=== PATIENT | female | born 1990 | race Caucasian/White ===

== ENCOUNTER 2019-05-12 16:30 | Outpatient (CLI) | payer MEDICAID ==
[~2019-05-12] VITALS: Ht 160 cm; Wt 70.4 kg
[~2019-05-12 16:30] MED LIST: FER325 PO; HYDR-3601 PO; PREN-99 PO
[2019-05-12 16:37] VITALS: Ht 160 cm; Wt 70.4 kg
[2019-05-12 16:38] VITALS: BP 115/64; PULSE 84; RESP 18
[2019-05-12] MEDS: LACTATED RINGER'S 1,000 ML IV SCH ×2 (19:03→21:30)
--- NOTE | 2019-05-13 00:47 | PN ---
Triage Information Date/Time 05/13/19 Reason for visit: DFM Weeks of Gestation 37w5d /Para Diabetes: none Hypertention: none Additional information x2 C/S 2cm at the office Objective Vital Signs Date Temp Pulse Resp B/P (MAP) Pulse Ox O2 O2 Flow FiO2 Time Delivery Rate 05/12/19 99.0 84 18 115/64 Room Air 16:38 (81) Heart Rate: 150's Heart Rate Comments CAT I Contractions: >10 Minutes Apart Exam VE 2/75%/-1 Results/Medications Medications IV hydration Imaging Results BPP 8 JERRY 9.5 Disposition: Discharge Assessment/Plan A IUP 37w5d with x2 Previous C/S NIL P discharge home with routine labor instructions GUS MCGARRY MD May 13, 2019 00:47
--- NOTE | 2019-05-13 01:31 | TRIAGE ---
OB Triage Datetime Report Generated by CPN: 05/13/2019 01:31 Datetime: 05/12/2019 22:02 Stage of : OB Triage Assessment Type: Triage Labor Evaluation Frequency: 2-6.5 Monitor Mode: External Duration (sec)2399: 40-100 Quality: Mild Pattern: Normal: <= 5 Contractions in 10 Minutes Resting Tone [place]: Relaxed Heart Rate FHR Baseline Rate: 130 Monitor Mode: External US FHR Baseline Changes: No Baseline Change Variability: Moderate 6-25 bpm Accelerations: 15X15 Decelerations: None Category: Category I Datetime: 05/12/2019 21:59 Monitor Mode: Palpation Resting Tone [place]: Relaxed Datetime: 05/12/2019 21:00 Stage of : OB Triage Labor Evaluation Frequency: 1.5-5.5 Monitor Mode: External Duration (sec)2399: 40-90 Quality: Mild Pattern: Normal: <= 5 Contractions in 10 Minutes Resting Tone [place]: Relaxed Heart Rate FHR Baseline Rate: 130 Monitor Mode: External US Variability: Moderate 6-25 bpm Accelerations: 15X15 Decelerations: None Category: Category I Datetime: 05/12/2019 20:28 Vaginal Exam Dilatation (cms): 2.0 Effacement (%): 70 Station: -1 Exam By: COURTNEY Middleton Vaginal Bleeding: None Cervix, Consistency: Moderate Cervix, Position: Midposition Presentation 'A': Cephalic Datetime: 05/12/2019 20:23 Monitor Mode: Palpation Resting Tone [place]: Relaxed Datetime: 05/12/2019 20:21 Stage of : OB Triage Assessment Type: Triage Maternal Assessment Level of Consciousness: Keenly Alert, Responsive DTR's/Clonus: DTRs 2+; No Clonus Headache: Denies Blurred Vision: No Respiratory Effort: Unlabored; Regular Rhythm; Equal Expansion Breath Sounds, Left: Clear and Equal Breath Sounds, Right: Clear and Equal Nausea/Vomiting: Denies RUQ Epigastric Pain: Denies Lower Extremities Edema: None Degree: None Upper Extremities Edema: None Degree: None Facial Edema: None Temperature Route: Oral Fall Risk Assessment History of Falling: (0) No Secondary Diagnosis: (0) No Ambulatory Aid: (0) Bedrest/Nurse Assist IV Therapy: (0) No Gait: (0) Normal/Bedrest/Immobile Mental Status: (0) Oriented to Own Ability Fall Score: 0 Fall Risk Score Definition: No Risk: No action required Pain Assessment Pain Scale: 4 Pain Presence: Intermittent Pain Type: Cramping Pain Location: Abdomen Pain Relief Measures: Comfort Measures Datetime: 05/12/2019 20:19 Stage of : OB Triage Datetime: 05/12/2019 18:45 Labor Evaluation Frequency: irregular Monitor Mode: External Duration (sec)2399: 40-60 Quality: Mild Resting Tone [place]: Relaxed Heart Rate FHR Baseline Rate: 130 Monitor Mode: External US FHR Baseline Changes: No Baseline Change Variability: Moderate 6-25 bpm Accelerations: 15X15 Decelerations: None Category: Category I Datetime: 05/12/2019 17:45 Labor Evaluation Frequency: x6 Monitor Mode: External Duration (sec)2399: 40-70 Quality: Mild Resting Tone [place]: Relaxed Contraction Comments: uterine irritability noted Heart Rate FHR Baseline Rate: 130 Monitor Mode: External US FHR Baseline Changes: No Baseline Change Variability: Moderate 6-25 bpm Accelerations: 15X15 Decelerations: None Category: Category I Datetime: 05/12/2019 16:44 Stage of : OB Triage Assessment Type: Triage Maternal Assessment Level of Consciousness: Keenly Alert, Responsive DTR's/Clonus: DTRs 2+; No Clonus Headache: Denies Blurred Vision: No Respiratory Effort: Unlabored; Regular Rhythm; Equal Expansion Breath Sounds, Left: Clear and Equal Breath Sounds, Right: Clear and Equal Nausea/Vomiting: Denies RUQ Epigastric Pain: Denies Lower Extremities Edema: None Degree: None Upper Extremities Edema: None Degree: None Facial Edema: None Temperature Route: Oral Fall Risk Assessment History of Falling: (0) No Secondary Diagnosis: (0) No Ambulatory Aid: (0) Bedrest/Nurse Assist IV Therapy: (0) No Gait: (0) Normal/Bedrest/Immobile Mental Status: (0) Oriented to Own Ability Fall Score: 0 Fall Risk Score Definition: No Risk: No action required Labor Evaluation Frequency: x1 Monitor Mode: External Duration (sec)2399: 50 Quality: Mild Pattern: Normal: <= 5 Contractions in 10 Minutes Resting Tone [place]: Relaxed Contraction Comments: uterine irritability noted Heart Rate FHR Baseline Rate: 140 Monitor Mode: External US FHR Baseline Changes: No Baseline Change Variability: Moderate 6-25 bpm Accelerations: 15X15 Decelerations: None Category: Category I Pain Assessment Pain Scale: 4 Pain Presence: Intermittent Pain Type: Cramping Pain Location: Abdomen Pain Relief Measures: Comfort Measures Datetime: 05/12/2019 16:42 Time of Arrival: 05/12/2019 16:15 EGA: 37.6 Arrived By: Ambulatory Arrived From: Dr. Ronquillo Chief Complaint: VE 1 dilated in the office Movement: Present Contractions: Irregular Contractions: [id number] Rupture of Membranes: Denies Vaginal Bleeding: None Vaginal Discharge: Denies Recent Sexual Intercouse: Denies Abdominal Trauma: Not Applicable Patient Complaints: Cramping Time Provider Notified: 05/12/2019 17:43 Provider Notified: Dr Camejo Initial Plan: NST
== END 2019-05-12 22:22 | disposition home or self-care (01) ==
LOC: OBT 16:30 → L-D 16:30 → OBT 22:22
PROVIDERS: ATTEND Obstetrics & Gynecology
DX: O36.8130 Decreased fetal movements, third trimester, not applicable or unspecified (principal); Z3A.37 37 weeks gestation of pregnancy
CPT/HCPCS: 36415; 76818; 96360; 96361; J7120; Z7500; G0463

== ENCOUNTER 2019-05-19 12:32 | Outpatient (CLI) | payer MEDICAID ==
[~2019-05-19] VITALS: Ht 160 cm; Wt 70.4 kg
[2019-05-19 12:58] VITALS: Ht 160 cm; Wt 70.4 kg
[2019-05-19 12:59] VITALS: BP 101/60; PULSE 78; RESP 19
--- NOTE | 2019-05-19 15:12 | TRIAGE ---
OB Triage Datetime Report Generated by CPN: 05/19/2019 15:11 Datetime: 05/19/2019 14:00 Labor Evaluation Frequency: 0 Pattern: Normal: <= 5 Contractions in 10 Minutes Resting Tone [place]: Relaxed Heart Rate FHR Baseline Rate: 135 Monitor Mode: External US FHR Baseline Changes: No Baseline Change Variability: Moderate 6-25 bpm Accelerations: 15X15 Decelerations: None Category: Category I Datetime: 05/19/2019 13:30 Labor Evaluation Frequency: OCCAS Monitor Mode: External Duration (sec)2399: 50-80 Quality: Mild Pattern: Normal: <= 5 Contractions in 10 Minutes Resting Tone [place]: Relaxed Heart Rate FHR Baseline Rate: 145 Monitor Mode: External US FHR Baseline Changes: No Baseline Change Variability: Moderate 6-25 bpm Accelerations: 15X15 Decelerations: None Category: Category I Datetime: 05/19/2019 13:04 Assessment Type: Triage Maternal Assessment Level of Consciousness: Keenly Alert, Responsive DTR's/Clonus: DTRs 2+; No Clonus Headache: Denies Blurred Vision: No Respiratory Effort: Unlabored; Regular Rhythm; Equal Expansion Breath Sounds, Left: Clear and Equal Breath Sounds, Right: Clear and Equal Nausea/Vomiting: Denies RUQ Epigastric Pain: Denies Lower Extremities Edema: None Degree: None Upper Extremities Edema: None Degree: None Facial Edema: None Fall Risk Assessment History of Falling: (0) No Secondary Diagnosis: (0) No Ambulatory Aid: (0) Bedrest/Nurse Assist IV Therapy: (0) No Gait: (0) Normal/Bedrest/Immobile Mental Status: (0) Oriented to Own Ability Fall Score: 0 Fall Risk Score Definition: No Risk: No action required Datetime: 05/19/2019 13:02 Time of Arrival: 05/19/2019 12:26 EGA: 38.6 Arrived By: Ambulatory Arrived From: Home Chief Complaint: DFM Movement: Decreased Contractions: Denies/Absent Rupture of Membranes: Denies Vaginal Bleeding: None Vaginal Discharge: Denies Recent Sexual Intercouse: Denies Abdominal Trauma: Not Applicable Patient Complaints: Other Time Provider Notified: 05/19/2019 14:27 Provider Notified: DR. ARMENDARIZ Initial Plan: NST BPP Datetime: 05/12/2019 22:01 Stage of : OB Triage Datetime: 05/12/2019 21:59 Stage of : OB Triage Datetime: 05/12/2019 20:21 Fall Score: 0 Fall Risk Score Definition: No Risk: No action required Datetime: 05/12/2019 19:20 Stage of : OB Triage Datetime: 05/12/2019 16:44 Fall Score: 0 Fall Risk Score Definition: No Risk: No action required Datetime: 05/12/2019 16:42 EGA: 37.6
--- NOTE | 2019-05-19 15:31 | PN ---
Triage Information Date/Time May 19, 2019 Reason for visit: DFM Weeks of Gestation 38 weeks and 6 days /Para Diabetes: none Additional information 28 years old with IUP at 38 weeks and 6 days presented with complaint of Decreased movement. Denies any LOF,. vaginal bleeding or contractions. Denies any other complaint Objective Vital Signs Date Temp Pulse Resp B/P (MAP) Pulse Ox O2 O2 Flow FiO2 Time Delivery Rate 05/19/19 98.2 78 19 101/60 Room Air 12:59 (74) Heart Rate: 130's Heart Rate Comments Cat 1 Contractions: None Exam GA;' A&O, NAD abdomen: Soft, gravid. Fundal Height consistent with date NST. Cat 1 BPP: 05/26 JERRY: 10.1 Results/Medications Imaging Results PROCEDURE: OB ultrasound for biophysical profile CLINICAL INDICATION: Decreased movement. TECHNIQUE: Multiple sonographic images of the pelvis were obtained. Transabdominal view of the gravid uterus are available for review. The images were reviewed on a PACS workstation. COMPARISON: US PELVIS 05/12/2019 FINDINGS: breathing movement = 2/2 tone = 2/2 motion = 2/2 Quantitative amniotic fluid volume = 2/2 JERRY = 10.1 cm Single live intrauterine with cardiac activity at 142 beats per minute. There is a fundal placenta without previa or abruption. IMPRESSION: 1. Single living intrauterine gestation in cephalic position. 2. Biophysical profile = 05/26. 3. JERRY = 10.1 cm. RPTAT: [facility] Disposition: Discharge Assessment/Plan IUP at 38 weeks and 6 days Decreased movement testing reassuring DC home no evidence of labor or PPROM Strict labor precaution and kick counts and follow up with OB office in 3 days discussed with the patient Patient verbalized understanding EDGARDO ARMENDARIZ MD May 19, 2019 15:31
== END 2019-05-19 14:40 | disposition home or self-care (01) ==
LOC: L-D 12:32 → OBT 12:32
PROVIDERS: ATTEND Obstetrics & Gynecology
DX: O36.8130 Decreased fetal movements, third trimester, not applicable or unspecified (principal); Z3A.38 38 weeks gestation of pregnancy
CPT/HCPCS: 76818; Z7500; G0463

== ENCOUNTER 2019-05-21 07:06 | Inpatient (IN) | payer MEDICAID ==
[~2019-05-21] VITALS: Ht 157.5 cm; Wt 70.0 kg
[2019-05-21 07:36] VITALS: Ht 157.5 cm; Wt 70.0 kg
[2019-05-21] MEDS ORDERED: CARBOPROST 250 MCG INJ IM PRN ×3 (08:00→18:30)
[2019-05-21] MEDS ORDERED: CEFAZOLIN 2 GM/50 ML (PMX) 50 ML IVPB SCH (08:00)
[2019-05-21] MEDS ORDERED: OXYTOCIN 30 UNITS/LR 500 ML IV PRN ×3 (08:00→18:30)
[2019-05-21] MEDS ORDERED: MISOPROSTOL 200 MCG TAB PR PRN ×3 (08:00→18:30)
[2019-05-21] MEDS ORDERED: AZITHROMYCIN 500 MG in SOD CHLORIDE 0.9% 250 ML IVPB SCH (08:00)
[2019-05-21] MEDS ORDERED: METHYLERGONOVINE 0.2 MG INJ IM PRN ×3 (08:00→18:30)
--- NOTE | 2019-05-21 08:35 | PREAC ---
Date/Time of Note Date/Time of Note DATE: 05/21/19 TIME: 08:34 Anesthesia Eval and Record Evaluation Time Pre-Procedure Interview DATE: 05/21/19 TIME: 08:34 Age 28 Sex female NPO: 8 hrs Preoperative diagnosis iup at 39 weeks Planned procedure repeat c section Past Medical History Past Medical History: None Surgery & Anesthesia Issues No known issue Meds Anticoagulation: No Beta Yemi within 24 hr: No Reason Beta Yemi not given: Pt. not on B-Yemi Reported Medications Ferrous Sulfate* (Ferrous Sulfate*) 325 Mg Tabec, 325 MG PO DAILY, TAB 05/12/19 Vit #76/Iron,Carb/FA (Pnv 29-1 Tablet) 1 Each Tablet, 1 EACH PO DAILY, TAB 05/12/19 Current Medications Cefazolin Sodium/ Dextrose 50 ml @ 100 mls/hr ONCE IVPB ; Start 05/21/19 at 08:00 Oxytocin/Lactated Ringer's 500 ml @ 0 mls/hr ONCE PRN IV .VAGINAL BLEEDING; Start 05/21/19 at 08:00 Methylergonovine Maleate (Methergine) 0.2 mg ONCE PRN IM .VAGINAL BLEEDING; Start 05/21/19 at 08:00 Carboprost Tromethamine (Hemabate) 250 mcg ONCE PRN IM .VAGINAL BLEEDING; Start 05/21/19 at 08:00 Misoprostol (Cytotec) 1,000 mcg ONCE PRN [place] .VAGINAL BLEEDING; Start 05/21/19 at 08:00 Azithromycin 500 mg/Sodium Chloride 250 ml @ 250 mls/hr NOW IVPB ; Start 05/21/19 at 08:00; Stop 05/21/19 at 13:00 Meds reviewed: Yes Allergies Coded Allergies: No Known Drug Allergies (Verified Allergy, Unknown, 05/12/19) Allergies Reviewed: Yes Labs/Studies Labs Reviewed: Reviewed by anesthesiologist test: Positive Pre-procedure Exam Airway: Adequate mouth opening, Adequate thyromental dist Mallampati: Mallampati II Teeth: Normal Lung: Normal Heart: Normal ASA Physical Status ASA physical status: 2 Emergency: None Planned Anesthetic Neuraxial: Spinal Planned Pain Management Sub-arachniod narcotics, Parenteral pain med Pre-operative Attestations Prior to commencing anesthesia and surgery, the patient was re-evaluated, there was verification of: *The patient's identity *The results of appropriate recent lab work and preoperative vital signs *The above evaluation not changing prior to induction *Anesthetic plan, risk benefits, alternative and complications discussed with patient/family; questions answered; patient/family understands, accepts and wishes to proceed. NELLY GUO May 21, 2019 08:35
[2019-05-21] MEDS ORDERED: morphine SULFATE/PF (10 MG/10 ML) INJ ONE (09:17)
[2019-05-21] MEDS ORDERED: DEXAMETHASONE 4 MG/ML 1 ML INJ ONE (09:17)
[2019-05-21] MEDS ORDERED: ONDANSETRON 4 MG INJ ONE (09:17)
[2019-05-21] MEDS ORDERED: OXYTOCIN 30 UNITS/LR 500 ML IV ONE ×2 (09:17→10:55)
[2019-05-21] MEDS ORDERED: PHENYLephrine (100 MCG/ML) 10ML SYG ONE (09:18)
[2019-05-21] MEDS: LACTATED RINGER'S 1,000 ML IV SCH ×3 (09:20→14:24)
--- NOTE | 2019-05-21 09:55 | HP ---
Date/Time of Note Date/Time of Note DATE: 05/21/19 TIME: 09:54 OB - History Hx of Present Free Text/Dictation 28 years old -0-0-2 with single intrauterine at 39 weeks and 1 day with 2 previous delivery desiring permanent surgical sterilization. She states good movement. She denies nausea, vomiting, shortness of breath, chest pain, headache, visual changes, vaginal bleeding or LOF. Chief Complaint: Scheduled for repeat delivery and bilateral tubal ligation Estimated Due Date: May 27, 2019 : 3 Para: 2 Spontaneous : 0 Therapeutic : 0 Care: Good Care Ultrasounds: Normal mid trimester US Obstetrical Complications: None Medical Complications: None Past Family/Social History * Past Medical, Surgical, Family and Obstetric Histories reviewed from chart. Rubella: immune GBS Status: Negative HBsAG: Negative OB Admission Exam Vital Signs Vital Signs Blood pressure 116/68, pulse rate 72/minutes, respiratory rate 16/minutes, temperature 98.1. Physical Exam HEENT: WNL Heart: Rhythm Normal Lungs: Clear Abdomen: WNL Extremities: Normal Reflexes: Normal Membranes: Intact Heart Rate: 140's Accelerations: Accelerations Present Decelerations: No Decelerations Varibility: Moderate Contractions on Admission: >10 Minutes Apart Last 72 hours Lab Results CBC & BMP 05/21/19 07:50 OB Assessment/Plan Other plan: 28 years old -0-0-2 with single intrauterine at 39 weeks and 1 day with 2 previous delivery desires repeat delivery and permanent surgical sterilization -FHR: Category I -Continuous EFM, toco -CBC, blood type and screen -Please see the orders -A+/Rubella: Immune -GBS: Negative 2. She is desiring permanent surgical sterilization. BTL, other contraceptive options including IUD with risk-benefit discussed in detail with patient. The risk of delivery including but not limited to bleeding, infection, injury to other organs (bowel, bladder, ureter, vessels, nerves), injury to fetus, blood transfusion, blood transfusion related infection, risk of anesthesia, adhesion, needs for future , removal of uterus or any other indicated surgery, permanent surgical sterilization. Increased risk of ectopic if failure of procedure occurs was discussed with the patient and her family. She expressed understanding. All of her questions were answered. She signed the informed consent. PHYSICIAN'S VERIFICATION OF INFORMED CONSENT The patient was counseled regarding the procedure, its indications, risks, potential complications and alternatives and any questions were answered. Consent was obtained. PLANNED PROCEDURE/TREATMENT: delivery with possible using vacuum/forceps, bilateral tubal ligation and any other indicated surgery PHYSICIAN'S VERIFICATION OF INFORMED CONSENT FOR BLOOD TRANSFUSION: There is a reasonable possibility that blood transfusion will be necessary as a result of the patient's procedure. I have discussed the following with the patient/patient's legal healthcare representative: An explanation of the benefits and risks of the transfusion of blood or blood products and the possible alternatives. All questions have been answered to the patient's satisfaction. INFORMED CONSENT:The patient has been informed of: The nature of the proposed care, treatment, services, medications, interventions or procedures. Potential benefits, risks or side effects, including potential problems related to recuperation. The likelihood of achieving care treatment and service goals. Reasonable alternatives to the proposed care, treatment and service. The relevant risks, benefits and side effects related to alternatives, including the possible results of not receiving care, treatment and services. When indicated, any limitations on the confidentiality of information learned from or about the patient. If appropriate, the risks, benefits and alternatives of the drugs to be used for sedation/analgesia including moderate sedation. If appropriate, patient has been provided information on the risks, benefits and alternatives to the transfusion of blood and/or blood products. If appropriate, patient has been provided information regarding the [employer]ron [employer] Blood Act. GIOVANNA PHAM May 21, 2019 09:54
--- NOTE | 2019-05-21 11:21 | OPR ---
Operative Report Planned Procedure Procedure date May 21, 2019 Procedure(s) 1. Repeat low transverse delivery 2. Bilateral sural salpingectomy Performed by see signature line Orchard Pruner: ENEDELIA GORDON MD Anesthesiologist: NELLY GUO Pre-procedure diagnosis 28 years old -0-0-2 with single intrauterine at 39 weeks and 1 day with 2 previous delivery desiring repeat delivery and permanent surgical sterilization. [id number] Anesthesia Type: [id number] spinal Post-Procedure Post-procedure diagnosis 28 years old -0-0-2 with single intrauterine at 39 weeks and 1 day with 2 previous delivery desiring repeat delivery and permanent surgical sterilization. Findings 1. Normal uterus, fallopian tubes and ovaries 2. Viable female in cephalic presentation. 9 at one minute and 9 in 5 minutes. Weight: 7 pounds 14 ounces / 3560 g. Time of delivery: 10:09 3. Placenta with three vessel cord 4. Amniotic fluid - Clear Estimated Blood Loss: 500 - 600 mls Specimen(s) none Grafts/Implant(s) none Complication(s) none Pt Condition post procedure: stable Disposition: PACU Procedure Description INDICATION AND HISTORY: A 28 years old -0-0-2 with single intrauterine at 39 weeks and 1 day with 2 previous delivery desiring repeat delivery and permanent surgical sterilization. The risk of delivery including but not limited to bleeding, infection, injury to other organs (bowel, bladder, ureter, vessels, nerves), injury to fetus, blood transfusion, blood transfusion related infection, risk of anesthesia, adhesion, needs for future , removal of uterus or any other indicated surgery was discussed with the patient and her family. She expressed understanding. All of her questions were answered. She signed the informed consent. DESCRIPTION OF OPERATION: The patient was taken to the operating room, where she was identified and the procedure was verified. The patient received two gram of Ancef 30 minutes prior to surgery. Spinal anesthesia was placed by anesthesiologist. The patient placed in the dorsal supine position with a left tilt. The heart rate was 130 bpm. The patient was then prepped and draped in the normal sterile fashion. A Pfannenstiel skin incision was made and carried down to the fascia with knife. The fascia was incised in the midline and the fascial incision was carried laterally with Leal scissors. The superior portion of the fascial incision was then grasped with Izabella clamps and tented up and dissected off the underlying rectus muscle with sharp dissection. The lower portion of the fa scial incision was then made in a similar fashion. The rectus muscle was and the peritoneum was entered. The peritoneal incision was then stretched and a bladder blade was inserted. Then, an incision was made in the lower uterine segment in a transverse fashion with a knife and extended bluntly. The was delivered atraumatically in cephalic presentation with the above findings. The umbilical cord was clamped and cut. The neonatology resuscitation team was present and the baby was handed to them. A cord blood sample was obtained for further evaluation. The placenta and membrane, which appeared normal were Removed. The uterus was exteriorized and cleared of all clot and debris. The uterus was then closed in a two layer fashion with 0- Monocryl. At the time of closure, hemostasis was noted. The gutters were irrigated. The peritoneum was reapproximated with 3-0 Vicryl. The muscle was reapproximated with 3-0 Vicryl. The fascia was approximated with 0-Vicryl in a running fashion. The subcutaneous tissue was re approximated with 3-0 vicryl. The skin was closed with 4-0 Monocryl. All instruments, sponges and needle counts were correct x3. The patient tolerated the procedure well. She transferred to the recovery room in stable condition. GIOVANNA PHAM May 21, 2019 11:21
[2019-05-21] MEDS ORDERED: DIPHENHYDRAMINE 50 MG INJ IV PRN (11:30)
[2019-05-21] MEDS ORDERED: NALOXONE (0.4 MG/ML) INJ IV PRN (11:30)
[2019-05-21] MEDS ORDERED: ONDANSETRON 4 MG INJ IV PRN (11:30)
[2019-05-21] MEDS ORDERED: ZOLPIDEM 5 MG TAB PO PRN (11:30)
[2019-05-21] MEDS ORDERED: HYDROmorphONE 0.5 MG/0.5 ML SYG IV PRN ×2 (11:30)
[2019-05-21] MEDS: KETOROLAC 30 MG INJ IV PRN (12:29)
[2019-05-21 16:25] VITALS: BP 107/55; PULSE 65; RESP 16
[2019-05-21 17:25] VITALS: BP 99/53; PULSE 65; RESP 16
[2019-05-21] MEDS: DEXTROSE 5%-LR 1,000 ML IV SCH (18:11)
[2019-05-21] MEDS ORDERED: OXYTOCIN 30 UNITS/LR 500 ML IV SCH (18:11)
[2019-05-21 18:25] VITALS: BP 106/50; PULSE 66; RESP 16
[2019-05-21] MEDS ORDERED: MAGNESIUM HYDROXIDE 30ML CUP PO PRN (18:30)
[2019-05-21] MEDS ORDERED: METHYLERGONOVINE 0.2 MG TAB PO PRN (18:30)
[2019-05-21] MEDS ORDERED: LANOLIN HPA 1 PKT TOP PRN (18:30)
[2019-05-21 20:00] VITALS: BP 98/50; PULSE 60; RESP 16
[2019-05-21] MEDS: SENNA/DOCUSATE NA (8.6MG/50MG) TAB PO SCH (21:29)
--- NOTE | 2019-05-21 22:09 | PAC ---
Date/Time of Note Date/Time of Note DATE: 05/21/19 TIME: 22:09 Post-Anesthesia Notes Post-Anesthesia Note Last documented vital signs Vital Signs Date Temp Pulse Resp B/P (MAP) Pulse Ox O2 O2 Flow FiO2 Time Delivery Rate 05/21/19 98.5 66 16 106/50 96 Room Air 2100 (68) Activity: WNL Respiratory function: WNL Cardiovascular function: WNL Mental status: Baseline Pain reasonably controlled: Yes Hydration appropriate: Yes Nausea/Vomiting absent: Yes NELLY GUO May 21, 2019 22:09
[2019-05-22 00:27] VITALS: BP 97/45; PULSE 64; RESP 18
[2019-05-22] MEDS: KETOROLAC 30 MG INJ IV PRN ×2 (02:43→08:33)
[2019-05-22 04:00] VITALS: BP 101/53; PULSE 74; RESP 18
[2019-05-22] MEDS: DEXTROSE 5%-LR 1,000 ML IV SCH ×3 (05:27→18:11)
[2019-05-22 08:15] VITALS: BP 104/51; PULSE 69; RESP 16
[2019-05-22] MEDS: SENNA/DOCUSATE NA (8.6MG/50MG) TAB PO SCH ×2 (08:33→22:43)
[2019-05-22] MEDS ORDERED: HYDROCODONE/APAP (5/325) TAB PO PRN ×2 (09:00→11:00)
[2019-05-22] MEDS ORDERED: HYDROCODONE/APAP (5/325) TAB NGT PRN (11:00)
[2019-05-22] MEDS ORDERED: DIPHTH/TET/ACEL PERTUSS (ADULT) 0.5 ML VIAL IM* ONE (11:00)
--- NOTE | 2019-05-22 11:28 | QN ---
Documentation Comment Postop day #1 Status post repeat and BTL Patient stable and afebrile Positive flatus and voiding and tolerating regular diet and ambulating Vital signs stable VS - Last 72 Hours, by Label Date Temp Pulse Resp B/P (MAP) Pulse Ox O2 O2 Flow FiO2 Time Delivery Rate 05/22/19 97.9 69 16 104/51 Room Air 08:15 (68) 05/22/19 98.1 74 18 101/53 97 Room Air 04:00 (69) 05/22/19 98.3 64 18 97/45 (62) 98 Room Air 00:27 05/21/19 98.3 60 16 98/50 (66) 97 Room Air 20:00 05/21/19 98.5 66 16 106/50 96 Room Air 18:25 (68) 05/21/19 98.1 65 16 99/53 (68) 96 Room Air 17:25 05/21/19 98.1 65 16 107/55 96 Room Air 16:25 (72) Hematology - 72 Hrs Test 05/21/19 07:50 05/22/19 07:06 Hematocrit 36.0 % (37.0-47.0) L 28.4 % (37.0-47.0) #L Hemoglobin 12.1 g/dl (12.0-16.0) 9.7 g/dl (12.0-16.0) L Mean Corpuscular 30.5 pg (29.0-33.0) 30.4 pg (29.0-33.0) Hemoglobin Mean Corpuscular 33.6 g/dl (32.0-37.0) 34.2 g/dl (32.0-37.0) Hemoglobin Concent Mean Corpuscular Volume 90.7 fl (82.0-101.0) 89.0 fl (82.0-101.0) Mean Platelet Volume 11.5 fl (7.4-10.4) H 11.0 fl (7.4-10.4) H Platelet Count 197 10^3/UL (140-415) 170 10^3/UL (140-415) Red Blood Count 3.97 10^6/ul (4.20-5.40) 3.19 10^6/ul (4.20-5.40) L L Red Cell Distribution 13.2 % (11.5-14.5) 12.9 % (11.5-14.5) Width White Blood Count 11.5 10^3/ul (4.8-10.8) 13.3 10^3/ul (4.8-10.8) H H Abdomen soft, fundus firm Incision clean,dry,intact Extremities nontender Assessment and plan Patient stable and doing well Encouraged to ambulate Continue with routine postop care ENEDELIA GORDON MD May 22, 2019 11:28
[2019-05-22] MEDS: IBUPROFEN 800 MG TAB PO SCH ×2 (13:36→22:44)
[2019-05-22] MEDS ORDERED: HYDROCODONE/APAP (5/325) TAB GTB SCH (14:00)
[2019-05-22] MEDS ORDERED: HYDROCODONE/APAP (5/325) TAB PO SCH (14:00)
[2019-05-22 16:25] VITALS: BP 101/55; PULSE 72; RESP 16
[2019-05-22 16:36] VITALS: RESP 18
[2019-05-22] MEDS: HYDROCODONE/APAP (5/325) TAB PO PRN (16:36)
[2019-05-22 20:00] VITALS: BP 104/57; PULSE 70; RESP 20
[2019-05-23 04:00] VITALS: BP 110/60; PULSE 66; RESP 18
[2019-05-23] MEDS: IBUPROFEN 800 MG TAB PO SCH ×3 (06:56→21:20)
[2019-05-23 08:00] VITALS: BP 105/55; PULSE 74; RESP 18
[2019-05-23] MEDS: SENNA/DOCUSATE NA (8.6MG/50MG) TAB PO SCH ×2 (08:58→21:20)
--- NOTE | 2019-05-23 14:45 | OPPN ---
Date/Time of Note Date/Time of Note DATE: 05/23/19 TIME: 14:44 Anesthesia Follow up Anesthesia Follow up Last documented vital signs Vital Signs Date Temp Pulse Resp B/P (MAP) Pulse Ox O2 O2 Flow FiO2 Time Delivery Rate 05/23/19 98.1 74 18 105/55 08:00 (72) 05/23/19 Room Air 04:00 05/22/19 97 04:00 Respiratory function: WNL Cardiovascular function: WNL Comments satisfatory pain management with duramorph NELLY GUO May 23, 2019 14:45
[2019-05-23 16:00] VITALS: BP 101/53; PULSE 67; RESP 16
[2019-05-23] MEDS ORDERED: HYDROCODONE/APAP (5/325) TAB PO PRN (17:00)
--- NOTE | 2019-05-23 17:25 | DS ---
Date/Time of Note Date/Time of Note DATE: 05/23/19 TIME: 17:24 Obstetrical Discharge Record Final Diagnosis Final Diagnosis: Term delivered Other Final Diagnosis date of admission 05/21/19 1. 28-year-old G3, P3 at 39 weeks and 1 day for repeat section. She had a history of 2 prior sections. Underwent a section and bilateral tubal ligation. Her hospital course was uncomplicated. Prior to discharge she was ambulating, passing flatus, tolerating a regular diet and her pain was well controlled. She was breast-feeding without difficulty. Her lungs were clear to auscultation bilaterally. Her heart had a regular rate and rhythm. Her fundus was below the level of the umbilicus. Her incision was clean dry and intact. Her extremities were nontender to palpation. 2. Anemia acute blood lossher H/H was 9.8/28.9. Her vitals were stable within normal limits. Her blood pressure was 101/53. Her heart rate was 69. 3. History of depression-social service consult pending discharge. patient to follow up in 1 week for an incision check. Vital Signs Date Temp Pulse Resp B/P (MAP) Pulse Ox O2 O2 Flow FiO2 Time Delivery Rate 05/23/19 98.2 67 16 101/53 16:00 (69) Laboratory Tests Test 05/22/19 07:06 05/23/19 14:37 Hematocrit 28.4 % 28.9 % Hemoglobin 9.7 g/dl 9.8 g/dl Platelet Count 170 10^3/UL 190 10^3/UL White Blood Count 13.3 10^3/ul 10.7 10^3/ul Condition on Discharge Physical Assessment Patient Condition: Stable MILESTONE,MICHELLE ARIAS May 23, 2019 17:25
[2019-05-23 20:00] VITALS: BP 104/53; PULSE 62; RESP 20
[2019-05-24 04:00] VITALS: BP 94/50; PULSE 60; RESP 18
[2019-05-24] MEDS: IBUPROFEN 800 MG TAB PO SCH ×2 (06:23→13:26)
[2019-05-24 08:00] VITALS: BP 107/61; PULSE 67; RESP 16
[2019-05-24] MEDS ORDERED: MEASLES,MUMPS,RUBELLA VACCINE INJ SC* ONE (09:00)
[2019-05-24] MEDS ORDERED: DIPHTH/TET/ACEL PERTUSS (ADULT) 0.5 ML VIAL IM* ONE (09:00)
[2019-05-24] MEDS: SENNA/DOCUSATE NA (8.6MG/50MG) TAB PO SCH (09:41)
[2019-05-24] MEDS: HYDROCODONE/APAP (5/325) TAB PO PRN (12:18)
--- NOTE | 2019-05-25 16:20 | DELSUM ---
Delivery Summary A-C Datetime Report Generated by CPN: 05/25/2019 16:19 DELIVERY PERSONNEL Director Packaging: Desean, Noris MATERNAL INFORMATION Delivery Anesthesia: Spinal Medications in Delivery: SEE ANESTHESIA RECORD Delivery QBL (ml): 500 Placenta Cultured: No Maternal Complications: None LABOR SUMMARY EDC: 05/27/2019 00:00 No. Babies in Womb: 1 Attempted: No Labor Anesthesia: None LABOR INFORMATION Reason for Induction: Not Applicable Group B Beta Strep: Negative Antibiotics # of Doses: X2 ANCEF 2G ZITHROMAX 500MG Antibiotics Time of Last Dose: 05/21/2019 10:00 MEMBRANES Membranes Rupture Method: Artificial Rupture of Membranes: 05/21/2019 10:08 Length of Rupture (hr): 0.02 Amniotic Fluid Color: Clear Amniotic Fluid Amount: Moderate Amniotic Fluid Odor: None STAGES OF LABOR Stage 3 hr: 0 Stage 3 min: 2 CSECTION DELIVERY Primary Indication: Repeat Elective Secondary Indication: N/A CSection Urgency: Elective CSection Incidence: Repeat Labor: No Labor Elective: Elective CSection Incision: Lower Uterine Transverse Sterilization Procedure: [place] BABY A INFORMATION Infant Delivery Date/Time: 05/21/2019 10:09 Method of Delivery: Born in Route : No : N/A Forceps: N/A Vacuum Extraction: N/A Shoulder Dystocia : No SHOULDER DYSTOCIA BABY A Delivery Date/Time: 05/21/2019 10:09 PRESENTATION/POSITION BABY A Presentation: Cephalic Cephalic Presentation: Vertex Vertex Position: Left Occipital Posterior Breech Presentation: N/A PLACENTA INFORMATION BABY A Placenta Delivery Time : 05/21/2019 10:11 Placenta Method of Delivery: Manual Removal Placenta Status: Delivered SCORES BABY A Heart Rate 1 min: >100 bpm Resp Effort 1 min: Good Cry Reflex Irritability 1 min: Cough/Sneeze/Pulls Away Muscle Tone 1 min: Active Motion Color 1 min: Body [place], Extremit Blue Resuscitation Effort 1 min: Tactile Stimulation SCORE 1 MIN: 9 Heart Rate 5 min: >100 bpm Resp Effort 5 min: Good Cry Reflex Irritability 5 min: Cough/Sneeze/Pulls Away Muscle Tone 5 min: Active Motion Color 5 min: Body [place], Extremit Blue Resuscitation Effort 5 min: Tactile Stimulation SCORE 5 MIN: 9 INFORMATION BABY A Gestational Age at Delivery: 39.1 Gestational Status: Full Term- 39- 40.6 Weeks Outcome : Liveborn, with signs of life Infant Condition : Stable Infant Sex: Female IDENTIFICATION/MEDS BABY A ID Band Number: [id number] ID Band Location: Right Leg; Left Arm Sensor Applied: Yes Sensor Number: [id number] Sensor Location : Cord Clamp Vitamin K Given : Not Given Erythromycin Given: Not Given WEIGHT/LENGTH BABY A Birthweight (gm): 3560 Infant Weight (lb): 7 Infant Weight (oz): 14 Length (in): 20.00 Length (cm): 50.80 CORD INFORMATION BABY A No. Cord Vessels: 3 Nuchal Cord : N/A Cord Blood Taken: Yes Suction: Mouth; Nose
== END 2019-05-24 16:19 | disposition home or self-care (01) | DRG 784 ==
LOC: L-D 07:06 → PP1 16:26 → EDSTATUS 05-28 07:05
PROVIDERS: ADMIT Obstetrics & Gynecology; ATTEND Obstetrics & Gynecology
PROC: 0UT70ZZ Resection of Bilateral Fallopian Tubes, Open Approach (ICD-10-PCS; 2019-05-21)
PROC: 3E033VJ Introduction of Other Hormone into Peripheral Vein, Percutaneous Approach (ICD-10-PCS; 2019-05-21)
PROC: 10D00Z1 Extraction of Products of Conception, Low, Open Approach (ICD-10-PCS; principal; 2019-05-21 09:45)
DX: O65.5 Obstructed labor due to abnormality of maternal pelvic organs (principal); O34.211 Maternal care for low transverse scar from previous cesarean delivery; D62 Acute posthemorrhagic anemia; O90.81 Anemia of the puerperium; Z3A.39 39 weeks gestation of pregnancy; Z37.0 Single live birth; Z30.2 Encounter for sterilization
CPT/HCPCS: 85025; 85610; 85730; 86592; 86850; 86900; 86901; 88302; 99464; J0456; J0690; J1100; J1200; J1885; J2274; J2370; J2405; J2590; J7050; J7120; J7121